=== PATIENT | male | born 1970 | race Caucasian/White ===

== ENCOUNTER → 2017-06-11 | Day surgery (SDC) | payer BC ==
[~2017-06-11] MED LIST: BELLADONNA/OPIUM 60 MG SUPP PR ONE; CEFTRIAXONE SOD 1 GM VIAL ONE; DEXAMETHASONE SOD PHOS INJ 4 MG/ML VIAL ONE; FENTANYL CITRATE/PF 100MCG/2 ML INJ ONE; FLOMAX0.4 MG PO; GENTAMICIN 80MG/NS 100 ML 200 ML IV PRN; GENTAMICIN SULFATE 160 MG in SODIUM CHLORIDE 0.9% 100 ML 100 ML IV PRN; IOPAMIDOL 610MG/1ML 300 MG/ML VIAL IV ONE; LIDOCAINE HCL 2% LOCAL INJ 5 ML SDV VIAL INJ ONE; MIDAZOLAM HCL 2 MG/2 ML VIAL ONE; ONDANSETRON HCL INJ 2 MG/ML VIAL ONE; PROPOFOL IV EMULSION 10 MG/ML 20 ML VIAL ONE; SEVOFLURANE INHAL SOLN 250 ML PEN BTL ONE
--- NOTE | 2017-07-19 04:34 | Operative Report ---
DATE OF PROCEDURE: June 11, 2017 PREOPERATIVE DIAGNOSES 1. Obstructive BPH. 2. Incomplete bladder emptying. POSTOPERATIVE DIAGNOSES 1. Obstructive BPH. 2. Incomplete bladder emptying. PROCEDURES PERFORMED 1. Cystourethroscopy with bilateral ureteral catheterization and retrograde ureteropyelography (separate procedure performed for the incomplete bladder emptying). 2. Interpretation of retrograde pyelography. 3. Supervision of fluoroscopy. No radiologist present. 4. Cystourethroscopy with implantation of 4 UroLift implants (separate procedure performed for the obstructive BPH). ANESTHESIA: General. COMPLICATIONS: None. CLINICAL SUMMARY: Momo Nowak is a 46-year-old man with obstructive BPH. He has failed Flomax. He is brought for the above procedures. The patient has a slow urinary force of stream with a maximum flow rate of less than 12 mL per second. He also has an AUA symptom score of greater than 12 on a 35. He is brought for the above procedures. He is aware of the risks of bleeding, infection, injury to adjacent structures, need for additional procedures, and elected to proceed. The patient previously had an elevated PSA to a value of 5.5. Followup examination revealed a PSA normalized at 3.71. OPERATIVE PROCEDURE IN DETAIL: Informed consent was verified. Momo Nowak was properly identified, taken to the operating room, and placed on the cystoscopy table in supine position. Anesthesia was uneventfully begun. The patient was then carefully and gently re-positioned in dorsal lithotomy position with all pressure points well padded. His genitalia were prepared and draped in usual sterile fashion. A 22.5-Kiswahili cystoscope sheath with a visual obturator in place was atraumatically inserted in patient's urethra. It was guided down the unremarkable urethra through the normal sphincteric region into the prostate bed which was significant for bilobar prostatic hypertrophy with visual obstruction and elevated median bar with visual obstruction of the bladder neck. Panendoscopy of the urinary bladder revealed grade 1 trabeculations, but no tumors, no stones, and no diverticula. Normally positioned and configured ureteral orifices were identified. An 8-Kiswahili catheter was used to cannulate each ureter and retrograde ureteropyelograms were performed. Interpretation of retrograde ureteropyelography: Contrast was instilled in retrograde fashion bilaterally. There were no tumors, no stones, and no diverticula. Unobstructed drainage was observed bilaterally fluoroscopically. UroLift implants were then placed. A total of 4 implants were placed. Two were placed 1.5 cm distal to the bladder neck anterolaterally on either side of the prostate. Two additional implants were then placed at the level of the verumontanum anterolaterally as well. This resulted in a continuous anterior channel that was open. The bladder was drained. The cystoscope was withdrawn while carefully examining the prostate bed. The belladonna and opium suppository was placed revealing a smooth prostate approximately 35 g in size, smooth, nonfluctuant without any nodules. The patient was uneventfully reversed from anesthesia and taken to recovery room in stable condition. There were no complications to the procedure. He tolerated the procedure well. Explicit postop instructions were given. Will follow the patient up in the office at which point in time we will perform uroflowmetry and bladder ultrasonography. Job#: [id number]
== END | disposition home or self-care (01) ==
LOC: OR 05:38
PROVIDERS: ATTEND Urology
DX: N40.1 Benign prostatic hyperplasia with lower urinary tract symptoms (principal); N13.8 Other obstructive and reflux uropathy; R39.14 Feeling of incomplete bladder emptying; N32.89 Other specified disorders of bladder; R35.1 Nocturia; N20.0 Calculus of kidney; E29.1 Testicular hypofunction; R01.1 Cardiac murmur, unspecified; Z68.31 Body mass index [BMI] 31.0-31.9, adult
CPT/HCPCS: 52005; C9740; 74420; 93005; J0696; J1100; J1580; J2001; J2250; J2405

== ENCOUNTER → 2018-05-30 | Outpatient (CLI) | payer BC ==
[~2018-05-30] MED LIST changes: +ANASTROZOLE1 MG INJ; +AXIRON30 MG/1.5 INJ; -BELLADONNA/OPIUM 60 MG SUPP PR ONE; -CEFTRIAXONE SOD 1 GM VIAL ONE; -DEXAMETHASONE SOD PHOS INJ 4 MG/ML VIAL ONE; -FENTANYL CITRATE/PF 100MCG/2 ML INJ ONE; -GENTAMICIN 80MG/NS 100 ML 200 ML IV PRN; -GENTAMICIN SULFATE 160 MG in SODIUM CHLORIDE 0.9% 100 ML 100 ML IV PRN; -IOPAMIDOL 610MG/1ML 300 MG/ML VIAL IV ONE; +LEVAQUIN500 MG PO; -LIDOCAINE HCL 2% LOCAL INJ 5 ML SDV VIAL INJ ONE; -MIDAZOLAM HCL 2 MG/2 ML VIAL ONE; -ONDANSETRON HCL INJ 2 MG/ML VIAL ONE; -PROPOFOL IV EMULSION 10 MG/ML 20 ML VIAL ONE; -SEVOFLURANE INHAL SOLN 250 ML PEN BTL ONE; +TYLENOL WITH C1 EACH PO; +VIT B12 INJ
--- NOTE | 2018-05-30 10:16 | Diagnostic Imaging Report ---
PROCEDURE:X-RAY ABDOMEN - KUB COMPARISON:None. INDICATIONS:URINARY CALCULI FINDINGS: Bowel gas partially obscures visualization of the kidneys. There are no calcifications projected over the renal shadows, expected course of the ureters or bladder. There is a non-obstructed bowel-gas pattern. There are no acute osseous abnormalities. Fiducial markers project over the pelvis. CONCLUSION: No radiographic evidence of urinary stone. Dictated by: DEBBIE GREEN M.D. on 05/30/2018 at 10:25 Electronically approved by: DEBBIE GREEN M.D. on 05/30/2018 at 10:25
== END ==
LOC: RAD 09:38
PROVIDERS: ATTEND Urology
DX: Z87.442 Personal history of urinary calculi (principal)
CPT/HCPCS: 74018

== ENCOUNTER 2018-06-28 08:28 | Inpatient (IN) | payer BC ==
[2018-06-26 12:26] LABS: BASOPHILS % 0.3 % (0.0-1.0); EOSINOPHILS # (AUTO) 0.2 (0.0-0.4); EOSINOPHILS % 2.6 % (0.0-6.0); HEMATOCRIT 49.8 % (38.2-49.6); HEMOGLOBIN 16.9 g/dL (14.0-18.0); LYMPHOCYTES # (AUTO) 1.5 (1.0-3.2); LYMPHOCYTES % 19.9 % (18.0-39.1); MEAN CORPUSCULAR HEMOGLOBIN 30.8 pg (28-32); MEAN CORPUSCULAR HGB CONC 33.9 g/dL (31-35); MEAN CORPUSCULAR VOLUME 90.7 fL (81-99); MONOCYTES # (AUTO) 0.7 (0.2-0.8); MONOCYTES % 9.1 % (4.4-11.3); NEUTROPHILS # (AUTO) 5.1 (2.1-6.9); NEUTROPHILS % 67.7 % (38.7-80.0); PLATELET COUNT 198 x10e3/uL (140-360); RED BLOOD COUNT 5.49 x10e6/uL (4.3-5.7); RED CELL DISTRIBUTION WIDTH 13.2 % (11.7-14.4)
[2018-06-26 12:48] LABS: ANION GAP 13.2 mmol/L (8-16); BLOOD UREA NITROGEN 18 mg/dL (7-26); BUN/CREATININE RATIO 14 (6-25); CALCIUM 9.1 mg/dL (8.4-10.2); CARBON DIOXIDE 27 mmol/L (22-29); CHLORIDE 101 mmol/L (98-107); CREATININE, SERUM 1.27 mg/dL (0.72-1.25); EST GLOMERULAR FILTRATION RATE > 60 ML/MIN (60-); GLUCOSE 95 mg/dL (74-118); POTASSIUM 4.2 mmol/L (3.5-5.1); SODIUM 137 mmol/L (136-145)
[~2018-06-28] VITALS: Ht 172.7 cm; Wt 99.3 kg
[~2018-06-28 08:28] MED LIST changes: -LEVAQUIN500 MG PO; -TYLENOL WITH C1 EACH PO
--- OUTSIDE RECORDS SUMMARY | 2018-06-28 08:30 | XMS REPORT ---
Author Author [facility] Address Unknown Phone Unavailable Care Team Providers Care Tool Liaison Name Role Phone SHERMAN MÉNDEZ Unavailable Unavailable Problems This patient has no known problems. Allergies, Adverse Reactions, Alerts This patient has no known allergies or adverse reactions. Medications This patient has no known medications. Results Test Description Test Time Test Comments Text Results Atomic Results Result Comments ABDOMEN-1VIEW (KUB) 2018-05-30 10:25:00 [place] [id number] Patient Name: ROOSEVELT ZHANG MR #: [id number] : 1970 Age/Sex: 47/M Req #: [id number] [facility] Physician: Ordered by: SHERMAN MÉNDEZ MD Report #: [id number] Location: [facility] Room/Bed: Procedure: [id number] DX/ABDOMEN-1VIEW (KUB) Exam Date: Exam Time: REPORT STATUS: Signed PROCEDURE: X-RAY ABDOMEN - KUB COMPARISON: None. INDICATIONS: URINARY CALCULI FINDINGS: Bowel gas partially obscures visualization of the kidneys. There are no calcifications projected over the renal shadows, expected course of the ureters or bladder. There is a non-obstructed bowel-gas pattern. There are no acute osseous abnormalities. Fiducial markers project over the pelvis. CONCLUSION: No radiographic evidence of urinary stone. Dictated by: DEBBIE GREEN M.D. on 05/30/2018 at 10:25 Electronically approved by: DEBBIE GREEN M.D. on 05/30/2018 at 10:25 Dictated By: DEBBIE GREEN MD [id number] Transcribed By: STARLA on 05/30/18 1025 COPY TO: SHERMAN MÉNDEZ MD
[2018-06-28] MEDS ORDERED: CEFTRIAXONE SOD 1 GM/NS 50 ML 50 ML IV ONE (08:40)
[2018-06-28] MEDS ORDERED: GENTAMICIN 80MG/NS 100 ML 200 ML IV ONE (08:40)
[2018-06-28] MEDS ORDERED: FLOMAX0.4 MG PO (08:54)
[2018-06-28] MEDS ORDERED: IOPAMIDOL 610MG/1ML 300 MG/ML VIAL IV ONE ×2 (10:07→10:48)
[2018-06-28] MEDS ORDERED: BELLADONNA/OPIUM 30 MG SUPP RC ONE ×2 (10:07→10:48)
[2018-06-28] MEDS ORDERED: MEPERIDINE HCL INJ 25 MG/ML VIAL ONE ×2 (12:25→12:58)
[2018-06-28] MEDS ORDERED: HYDROMORPHONE 2MG/ML 2 MG/ML ML ONE (12:40)
[2018-06-28] MEDS ORDERED: D5.45%NS/KCL 20MEQ 1,000 ML IV SCH (13:42)
[2018-06-28] MEDS ORDERED: BELLADONNA/OPIUM 60 MG SUPP PR PRN (13:45)
[2018-06-28] MEDS ORDERED: ACETAMINOPHEN/CODEINE 300MG - 30MG TAB PO PRN (13:45)
[2018-06-28] MEDS ORDERED: MORPHINE SULFATE INJ 4 MG/ML INJ ONE (14:44)
[2018-06-28] MEDS ORDERED: DEXAMETHASONE SOD PHOS INJ 4 MG/ML VIAL ONE (14:55)
[2018-06-28] MEDS ORDERED: SEVOFLURANE INHAL SOLN 250 ML PEN BTL ONE (14:55)
[2018-06-28] MEDS ORDERED: LIDOCAINE HCL 2% LOCAL INJ 5 ML SDV VIAL INJ ONE (14:55)
[2018-06-28] MEDS ORDERED: PROPOFOL IV EMULSION 10 MG/ML 20 ML VIAL ONE (14:55)
[2018-06-28] MEDS ORDERED: ONDANSETRON HCL INJ 2 MG/ML VIAL ONE (14:55)
--- NOTE | 2018-06-28 15:01 | NUR ---
Patient admitted to unit from PACU. Patient is post op TURP. Velez in place with continuous bladder irrigation. Urine noted to be pink tinged. Lung yanez clear to auscultation. Bowel sounds present but hypoactive. Patient c/o pain in lower abdomen/bladder area. PRN medication given. No edema noted. Left hand 20G IV in place. IV fluids infusing. Patient tolerated his diet. No s/s of distress noted
[2018-06-28 15:15] VITALS: BP 151/74
[2018-06-28] MEDS: BELLADONNA/OPIUM 30 MG SUPP RC PRN (15:47)
[2018-06-28] MEDS ORDERED: MIDAZOLAM HCL 2 MG/2 ML VIAL ONE (15:50)
[2018-06-28] MEDS ORDERED: FENTANYL CITRATE/PF 100MCG/2 ML INJ ONE (15:50)
[2018-06-28 15:59] VITALS: BP 151/74
[2018-06-28 16:01] VITALS: BP 151/74
[2018-06-28 16:57] VITALS: BP 151/74
[2018-06-28] MEDS: DOCUSATE SODIUM 100 MG CAP PO SCH (17:31)
[2018-06-28] MEDS: PHENAZOPYRIDINE HCL 100 MG TAB PO SCH (17:32)
[2018-06-28 20:13] VITALS: BP 148/63
[2018-06-28 21:51] VITALS: BP 148/63
[2018-06-29] VITALS (10 sets, daily range): BP systolic 110–166; BP diastolic 57–77
--- NOTE | 2018-06-29 00:30 | NUR ---
patient c/o urinary pain, alvarez cath to CBI, but not returning output at this time. simple flush performed, about 5 large clots and 5 small clots removed at this time. reconnected to CBI, draining.
[2018-06-29] MEDS: BELLADONNA/OPIUM 30 MG SUPP RC PRN (00:43)
[2018-06-29 04:41] LABS: BASOPHILS % 0.2 % (0.0-1.0); EOSINOPHILS # (AUTO) 0.1 (0.0-0.4); EOSINOPHILS % 0.4 % (0.0-6.0); HEMATOCRIT 46.9 % (38.2-49.6); HEMOGLOBIN 16.1 g/dL (14.0-18.0); LYMPHOCYTES # (AUTO) 1.4 (1.0-3.2); LYMPHOCYTES % 10.9 % (18.0-39.1); MEAN CORPUSCULAR HEMOGLOBIN 30.7 pg (28-32); MEAN CORPUSCULAR HGB CONC 34.3 g/dL (31-35); MEAN CORPUSCULAR VOLUME 89.3 fL (81-99); MONOCYTES # (AUTO) 1.1 (0.2-0.8); MONOCYTES % 8.6 % (4.4-11.3); NEUTROPHILS # (AUTO) 10.4 (2.1-6.9); NEUTROPHILS % 79.2 % (38.7-80.0); PLATELET COUNT 201 x10e3/uL (140-360); RED BLOOD COUNT 5.25 x10e6/uL (4.3-5.7); RED CELL DISTRIBUTION WIDTH 13.2 % (11.7-14.4)
[2018-06-29 04:57] LABS: BLOOD UREA NITROGEN 17 mg/dL (7-26); BUN/CREATININE RATIO 13 (6-25); CALCIUM 8.7 mg/dL (8.4-10.2); CARBON DIOXIDE 24 mmol/L (22-29); CHLORIDE 102 mmol/L (98-107); CREATININE, SERUM 1.26 mg/dL (0.72-1.25); EST GLOMERULAR FILTRATION RATE > 60 ML/MIN (60-); GLUCOSE 114 mg/dL (74-118); SODIUM 137 mmol/L (136-145)
--- NOTE | 2018-06-29 07:37 | NUR ---
Rcvd patient in report this am. Patient is asleep in bed at this time. CBI continues at this time. Urine clear and yellow
[2018-06-29] MEDS ORDERED: MAGNESIUM/ALUMINUM/SIMETHICONE 30 ML UDC PO PRN (09:00)
[2018-06-29] MEDS: SODIUM CHLORIDE 0.9% 1000ML 1,000 ML IV SCH ×2 (09:00→14:02)
[2018-06-29] MEDS ORDERED: CEFAZOLIN SOD 1 GM VIAL IV SCH (09:00)
[2018-06-29] MEDS: DOCUSATE SODIUM 100 MG CAP PO SCH ×2 (09:04→17:00)
[2018-06-29] MEDS: PHENAZOPYRIDINE HCL 100 MG TAB PO SCH ×3 (09:04→17:18)
[2018-06-29] MEDS: FAMOTIDINE 20 MG TAB PO SCH ×3 (09:15→16:30)
--- NOTE | 2018-06-29 09:30 | NUR ---
Patient is AAOx3. Patient lung yanez clear to auscultation. Bowel sounds present x4. Patient passing gas. Velez catheter remains in place with continuous bladder irrigation. No c/o pain. Urine noted to be clear orange. Patient ambulated to the bathroom on his own.
[2018-06-29] MEDS: CEFAZOLIN SOD 1 GM/D5W 50ML 50 ML IV SCH ×3 (09:51→22:18)
[2018-06-29] MEDS ORDERED: CEFTRIAXONE SOD 500 MG VIAL IM SCH (10:00)
--- NOTE | 2018-06-29 11:54 | NUR ---
Manual irrigation performed at this time. Small clots removed. Clear urine noted otherwise. No c/o pain
--- NOTE | 2018-06-29 12:47 | NUR ---
Nutrition Screen Note RD Recommendation for Physician: Continue diet as ordered Plan of Care: RD following, monitoring for adequacy and tolerance Nutrition reason for involvement: Nutrition Risk Trigger - MST Primary Diagnose(s): prostatism Ht: 68in Wt:219lbs BMI:33.3 kg/m2 IBW:154lbs RD Assessment:(06/29/2018) Initial encounter with Pt. Pt denies any nausea, vomiting or diarrhea nor has any difficulty chewing or swallowing. Pt is eating well Current Diet: Regular diet Malnutrition Evaluation (06/29/2018) The patient does not meet criteria for a specified degree of malnutrition at this time. Will re-evaluate at follow-up as appropriate. Diet Education Needs Assessment: Diet education not indicated. Diet Adequacy: Meeting calorie needs, Meeting protein needs, Meeting fluid needs Tolerance: Tolerating PO Nutrition Care Level: Quan Coughlin RD, LD, CNSC
[2018-06-29] MEDS: HYDROCODONE/APAP 10MG-325MG TAB PO PRN ×2 (14:20→19:30)
--- NOTE | 2018-06-29 19:04 | NUR ---
received patient aaox4, at side. no needs at this time. alvarez cath to CBI, output yellow/orange no blood or clots noted at this time. will continue to monitor the patient. bed locked and in lowest position, call light within easy reach. encouraged to call for assistance, patient verbalized understanding.
--- NOTE | 2018-06-29 19:35 | NUR ---
patient ambulated hallway with , tolerated well.
[2018-06-30] VITALS: BP 116/57
[2018-06-30] MEDS: HYDROCODONE/APAP 10MG-325MG TAB PO PRN ×3 (02:40→16:13)
[2018-06-30 04:12] VITALS: BP 118/61
[2018-06-30] MEDS: SODIUM CHLORIDE 0.9% 1000ML 1,000 ML IV SCH ×2 (05:00→15:00)
[2018-06-30] MEDS: CEFAZOLIN SOD 1 GM/D5W 50ML 50 ML IV SCH ×2 (05:48→13:39)
[2018-06-30 06:15] LABS: BASOPHILS % 0.5 % (0.0-1.0); EOSINOPHILS # (AUTO) 0.2 (0.0-0.4); EOSINOPHILS % 2.5 % (0.0-6.0); HEMATOCRIT 49.1 % (38.2-49.6); HEMOGLOBIN 16.3 g/dL (14.0-18.0); LYMPHOCYTES % 25.2 % (18.0-39.1); MEAN CORPUSCULAR HEMOGLOBIN 30.5 pg (28-32); MEAN CORPUSCULAR HGB CONC 33.2 g/dL (31-35); MEAN CORPUSCULAR VOLUME 91.9 fL (81-99); MONOCYTES # (AUTO) 0.9 (0.2-0.8); MONOCYTES % 11.1 % (4.4-11.3); NEUTROPHILS # (AUTO) 4.9 (2.1-6.9); NEUTROPHILS % 60.3 % (38.7-80.0); PLATELET COUNT 180 x10e3/uL (140-360); RED BLOOD COUNT 5.34 x10e6/uL (4.3-5.7); RED CELL DISTRIBUTION WIDTH 13.4 % (11.7-14.4)
[2018-06-30 06:38] LABS: BLOOD UREA NITROGEN 17 mg/dL (7-26); BUN/CREATININE RATIO 14 (6-25); CALCIUM 8.8 mg/dL (8.4-10.2); CARBON DIOXIDE 27 mmol/L (22-29); CHLORIDE 103 mmol/L (98-107); CREATININE, SERUM 1.22 mg/dL (0.72-1.25); EST GLOMERULAR FILTRATION RATE > 60 ML/MIN (60-); GLUCOSE 83 mg/dL (74-118); SODIUM 136 mmol/L (136-145)
[2018-06-30] MEDS: FAMOTIDINE 20 MG TAB PO SCH ×2 (07:30→16:30)
--- NOTE | 2018-06-30 07:30 | NUR ---
Rcvd patient in report this am. Patient is awake ambulating at this time. No s/s of distress noted
[2018-06-30 08:24] VITALS: BP 126/65
[2018-06-30] MEDS: PHENAZOPYRIDINE HCL 100 MG TAB PO SCH ×3 (08:24→17:44)
[2018-06-30] MEDS: DOCUSATE SODIUM 100 MG CAP PO SCH ×2 (08:24→17:44)
[2018-06-30 10:54] VITALS: BP 126/65
[2018-06-30 12:14] VITALS: BP 141/80
[2018-06-30] MEDS ORDERED: MAGNESIUM HYDROXIDE 30 ML UDC PO PRN (12:45)
--- NOTE | 2018-06-30 15:07 | NUR ---
Call placed to Dr. Rene to inquire on removal of the alvarez catheter. Urine clear. Bladder irrigation running at a slow rate. Patient requesting for catheter to be removed
--- NOTE | 2018-06-30 16:14 | NUR ---
Removed alvarez at this time. Patient tolerated well. 50ml of water removed from bulb. Tip intact. Patient tolerated well. Due to void and serial urines started
[2018-06-30 16:16] VITALS: BP 121/56
[2018-06-30] MEDS ORDERED: SENNOSIDES 8.6 MG TAB PO SCH (17:00)
--- NOTE | 2018-06-30 17:45 | NUR ---
Patient has voided two times. NOted to be orange in color. 300ml total so far
[2018-06-30] MEDS ORDERED: TYLENOL WITH C1 EACH PO (18:57)
[2018-06-30] MEDS ORDERED: LEVAQUIN500 MG PO (18:57)
--- NOTE | 2018-06-30 19:08 | NUR ---
Removed IV from left hand. Pressure dressing applied.
--- NOTE | 2018-07-09 01:27 | Operative Report ---
DATE OF PROCEDURE: June 28, 2018 PREOPERATIVE DIAGNOSES 1. Obstructing BPH, failed UroLift implants. 2. History of urolithiasis. POSTOPERATIVE DIAGNOSES 1. Obstructing BPH, failed UroLift implants. 2. History of urolithiasis. 3. Urethral stricture disease of the fossa navicularis. OPERATIONS PERFORMED 1. Cystourethroscopy with calibration and dilation of urethral stricture (separate procedure performed for diagnosis of stricture). 2. Cystourethroscopy with bilateral ureteral catheterization and retrograde ureteropyelography (separate procedure performed for the history of urolithiasis). 3. Interpretation of retrograde ureteropyelography. 4. Supervision of fluoroscopy. No radiologist present. 5. Cystourethroscopy with transurethral resection of the prostate utilizing the plasma button electrode. ANESTHESIA: General. COMPLICATIONS: None. CLINICAL SUMMARY: Momo Nowak is a 48-year-old man with significant obstructive BPH symptomatology. The patient underwent UroLift implantation with improvement of his symptomatology, but he still has been unable to wean himself off of the Flomax. He is still medication dependent and his urinary force of stream is not ideal and he desired definitive therapy. He is aware of the risks of bleeding, infection, injury to adjacent structures, need for additional procedures and elected to proceed. He understands also the risks of incontinence, impotence, and the almost definitive result of retrograde ejaculation. He understood all these risks and elected to proceed. OPERATIVE PROCEDURE IN DETAIL: Informed consent was verified. Momo Nowak was properly identified, taken to the operating room, placed on the cystoscopy table in supine position. Anesthesia was uneventfully begun. The patient was then uneventfully re-positioned in the dorsal lithotomy position with all pressure points well padded. His genitalia were prepared and draped in usual sterile fashion. The 22.5-Ukrainian cystoscope sheath with the visual obturator in place was atraumatically inserted in the patient's urethra, but we could not advance past the fossa navicularis where there was a stricture. We calibrated the stricture at 18-Ukrainian and dilated to 30-Ukrainian with sounds. We then proceeded down the otherwise unremarkable urethra to the normal sphincteric region through the prostate bed which was significant for a median lobe that was not intravesical but was intraprostatic and a very elevated median bar and visual obstruction of the prostate bed despite a small continuous channel present anteriorly as a result of his prior UroLift implant. We entered the patient's bladder where panendoscopy revealed no suspicious mucosal lesions. No tumors and no stones. Glomerulations were noted throughout the bladder with some minimal distention. No suspicious mucosal lesions were identified. Ureteral catheter was used to cannulate each ureter and retrograde ureteropyelograms were performed. Interpretation of retrograde ureteropyelography: Contrast was instilled in retrograde fashion bilaterally. There were no tumors, no stones, and no diverticula. Unobstructed drainage was observed bilaterally fluoroscopically. The resectoscope was then atraumatically placed and we proceeded with performing a transurethral resection of the prostate utilizing the plasma button electrode. Vaporization was carried out from the bladder neck to but never past the verumontanum. We first eliminated the median lobe down to its base and then throughout that part of procedure we were careful not to injure the ureteral orifices. We then worked on both lateral lobes from the bladder neck to but never past the verumontanum and down the surgical capsule circumferentially. The patient's prostate exhibited multiple prostatic stones that we released as signs of chronic prostatitis. The patient's prostatic parenchyma was also very fibrous which would explain why the patient was failing medications and why he failed to obtain an ideal UroLift response. This further reaffirms the patient's decision to proceed with a transurethral resection of the prostate. Pinpoint electrocautery was utilized to achieve hemostasis. The resectoscope was withdrawn. A continuous irrigation Velez catheter was placed, was irrigated to and fro to ensure it worked properly. He was then placed on continuous bladder irrigation with barely pink efflux emerging. A belladonna and opium suppository was placed, revealing a 40-g prostate that was smooth, nonfluctuant, without any nodules. The patient was then uneventfully reversed from anesthesia and taken to the recovery room in stable condition. There were no complications to the procedure. Patient tolerated the procedure well. Estimated blood loss was minimal. Plans will be to admit the patient to the hospital on an inpatient basis for continuous bladder irrigation as well as analgesia. The patient has now definite signs of having had chronic prostatitis. The patient's glomerulations exhibited that he may have as suspected in the background a diagnosis of interstitial cystitis or as is more contemporarily named chronic pelvic pain syndrome. He therefore will need admission for postoperative care including pain control with medications that we cannot provide as an outpatient such as a belladonna and opium suppository which he will require for management of his bladder spasms and the pelvic pain which we expect him to experience with the Velez catheter in situ. The patient has had previous pain control issues with urological procedures in the past. Hopefully, we will be able to wean the patient off the continuous irrigation and proceed with a voiding trial within the next 2 to 3 days. Job#: [id number] CF
== END 2018-06-30 19:15 | disposition home or self-care (01) | DRG 713 ==
LOC: OR 08:28 → PACU V 14:02 → MED/SURG 15:00
PROVIDERS: ADMIT Urology; ATTEND Urology
PROC: BT141ZZ Fluoroscopy of Kidneys, Ureters and Bladder using Low Osmolar Contrast (ICD-10-PCS; 2018-06-28)
PROC: 0V508ZZ Destruction of Prostate, Via Natural or Artificial Opening Endoscopic (ICD-10-PCS; principal; 2018-06-28 11:00)
PROC: 0T7D8ZZ Dilation of Urethra, Via Natural or Artificial Opening Endoscopic (ICD-10-PCS; 2018-06-28 11:00)
DX: N40.1 Benign prostatic hyperplasia with lower urinary tract symptoms (principal); N17.9 Acute kidney failure, unspecified; R39.14 Feeling of incomplete bladder emptying; R35.1 Nocturia; R33.9 Retention of urine, unspecified; R31.9 Hematuria, unspecified; G47.33 Obstructive sleep apnea (adult) (pediatric); N18.9 Chronic kidney disease, unspecified; N35.919 Unspecified urethral stricture, male, unspecified site; D72.829 Elevated white blood cell count, unspecified; N32.89 Other specified disorders of bladder
CPT/HCPCS: 36415; 74420; 80048; 82948; 84550; 85025; 93005; J0690; J0696; J1100; J1580; J2001; J2175; J2250; J2270; J2405; J7030

== ENCOUNTER 2019-10-23 12:18 | Inpatient (IN) | payer BC ==
[~2019-10-23] VITALS: Ht 172.7 cm; Wt 96.6 kg
[~2019-10-23 12:18] MED LIST changes: +LEVAQUIN500 MG PO; +TYLENOL WITH C1 EACH PO
[2019-10-23 14:13] LABS: BASOPHILS % 0.2 % (0.0-1.0); EOSINOPHILS # (AUTO) 0.1 (0.0-0.4); EOSINOPHILS % 1.1 % (0.0-6.0); HEMATOCRIT 48.8 % (38.2-49.6); HEMOGLOBIN 16.3 g/dL (14.0-18.0); LYMPHOCYTES # (AUTO) 1.2 (1.0-3.2); LYMPHOCYTES % 14.3 % (18.0-39.1); MEAN CORPUSCULAR HEMOGLOBIN 28.8 pg (28-32); MEAN CORPUSCULAR HGB CONC 33.4 g/dL (31-35); MEAN CORPUSCULAR VOLUME 86.2 fL (81-99); MONOCYTES # (AUTO) 0.6 (0.2-0.8); MONOCYTES % 7.1 % (4.4-11.3); NEUTROPHILS # (AUTO) 6.3 (2.1-6.9); NEUTROPHILS % 77.1 % (38.7-80.0); PLATELET COUNT 232 x10e3/uL (140-360); RED BLOOD COUNT 5.66 x10e6/uL (4.3-5.7)
--- NOTE | 2019-10-23 14:18 | Diagnostic Imaging Report ---
EXAMINATION: CHEST SINGLE (PORTABLE) INDICATION: Pre-operative COMPARISON: None FINDINGS: LINES/TUBES:None LUNGS:The lungs are well-inflated. No focal consolidation or pulmonary edema. PLEURA:No pleural effusion or pneumothorax. MEDIASTINUM:The cardiomediastinal silhouette appears normal in size and shape. BONES/SOFT TISSUES:No acute osseous injury. ABDOMEN:No free air under the diaphragm. IMPRESSION: No focal pneumonia or pulmonary edema. Signed by: Freddie Gant MD on 10/23/2019 2:14 PM
[2019-10-23 14:28] LABS: BLOOD UREA NITROGEN 20 mg/dL (7-26); BUN/CREATININE RATIO 18 (6-25); CALCIUM 9.1 mg/dL (8.4-10.2); CARBON DIOXIDE 26 mmol/L (22-29); CHLORIDE 104 mmol/L (98-107); CREATININE, SERUM 1.13 mg/dL (0.72-1.25); EST GLOMERULAR FILTRATION RATE > 60 ML/MIN (60-); GLUCOSE 87 mg/dL (74-118); SODIUM 137 mmol/L (136-145)
[2019-10-23] MEDS: CEFAZOLIN SOD 1 GM/NS 50ML 50 ML IV SCH ×2 (14:57→23:26)
[2019-10-23 15:03] LABS: INR 0.93
[2019-10-23 15:04] LABS: PARTIAL THROMBOPLASTIN TIME 27.1 seconds (23.8-35.5)
[2019-10-23] MEDS: D5.45%NS/KCL 20MEQ 1,000 ML IV SCH ×2 (15:33→23:26)
[2019-10-23] MEDS ORDERED: FENTANYL CITRATE/PF 100MCG/2 ML INJ ONE (15:44)
[2019-10-23] MEDS ORDERED: MIDAZOLAM HCL 2 MG/2 ML VIAL ONE (15:44)
[2019-10-23 16:13] VITALS: BP 121/76
[2019-10-23 16:13] LABS: COLOR,URINE YELLOW (YELLOW)
--- NOTE | 2019-10-23 16:13 | NUR ---
RECEIVED PATIENT FROM ER. PATIENT A/O X3, EVEN RESPIRATIONS ON RA. LUNG SOUNDS CLEAR. TELEMETRY #5 SR. PATIENT AMBULATES INDEPENDENTLY. NPO FOR PROCEDURE THIS AFTERNOON. LEFT AC 20 GAUGE IV WITH IVF @ 125 CC/HR. NO PAIN AT THIS TIME. PENILE PAIN WHEN MOVING. ORIENTED PATIENT TO ROOM AND CALL LIGHT. CALL LIGHT IN REACH WILL CONTINUE TO MONITOR PATIENT.
[2019-10-23 16:14] LABS: BILIRUBIN,URINE NEGATIVE (NEGATIVE); KETONES,URINE 1+ (NEGATIVE); LEUKOCYTE ESTERASE ,URINE NEGATIVE (NEGATIVE); NITRITE,URINE NEGATIVE (NEGATIVE); PROTEIN,URINE DIPSTICK NEGATIVE (NEGATIVE); URINE UROBILINOGEN 0.2 mg/dL (0.2 - 1)
[2019-10-23 16:15] LABS: CLARITY,URINE CLEAR (CLEAR)
[2019-10-23 16:19] LABS: EPITHELIAL CELLS,URINE RARE /LPF
--- NOTE | 2019-10-23 17:35 | NUR ---
PATIENT LEFT TO OR IN STABLE CONDITION.
[2019-10-23 17:38] VITALS: BP 121/76
[2019-10-23] MEDS ORDERED: BUPIVACAINE HCL 0.5% INJ 30 ML VIAL INJ ONE (17:53)
[2019-10-23] MEDS ORDERED: BACITRACIN ZINC 15 GM OINT ONE (17:53)
[2019-10-23] MEDS ORDERED: BACITRACIN 50,000 UNIT VIAL ONE (17:54)
[2019-10-23 18:02] VITALS: BP 121/76
[2019-10-23] MEDS ORDERED: ONDANSETRON HCL INJ 2MG/ML 2ML 2 MG/ML VIAL ONE (19:44)
[2019-10-23] MEDS ORDERED: LIDOCAINE HCL 2% LOCAL INJ 5 ML SDV VIAL INJ ONE (19:44)
[2019-10-23] MEDS ORDERED: SEVOFLURANE INHAL SOLN 250 ML PEN BTL ONE (19:44)
[2019-10-23] MEDS ORDERED: ACETAMINOPHEN 1000 MG/100 ML IV ONE (19:44)
[2019-10-23] MEDS ORDERED: PROPOFOL IV EMULSION 10 MG/ML 20 ML VIAL ONE (19:44)
[2019-10-23] MEDS ORDERED: DEXAMETHASONE SOD PHOS INJ 4 MG/ML VIAL ONE (19:44)
[2019-10-23] MEDS ORDERED: MEPERIDINE HCL INJ 25 MG/ML VIAL ONE (20:04)
[2019-10-23 20:30] VITALS: BP 137/81
[2019-10-23 20:52] VITALS: BP 137/81
[2019-10-23 21:08] VITALS: BP 137/81
[2019-10-23] MEDS: MORPHINE SULFATE 2 MG/ML SYR 1ML IV PRN (22:45)
[2019-10-24] VITALS (9 sets, daily range): BP systolic 113–136; BP diastolic 64–93
--- NOTE | 2019-10-24 03:06 | Operative Report ---
DATE OF PROCEDURE: 10/23/2019 SURGEON: Chung Rene MD PREOPERATIVE DIAGNOSIS: Acute penile fracture. POSTOPERATIVE DIAGNOSES: 1. Acute penile fracture. 2. Benign prostatic hypertrophy. 3. Urethral stricture disease. OPERATIONS PERFORMED: 1. Cystourethroscopy (separate procedure performed to evaluate for urethral injury and also to evaluate the patient given this history of urethral stricture disease and benign prostatic hypertrophy). 2. Penile exploration with repair of left corpora cavernosa tunica albuginea tear. 3. Regional nerve block (separate procedure performed for postoperative pain control and not required for the actual performance of surgery which is done under anesthesia). ANESTHESIA: General. COMPLICATIONS: None. CLINICAL SUMMARY: Momo Nowak is a 49-year-old man with severe Peyronie's disease. The patient has an extremely large plaque extending to both sides of the dorsal midshaft of the penis. The patient's plaque protrudes lateral from the corpora cavernosa on each side. The patient has been undergoing therapy with Xiaflex. He underwent Xiaflex injection through 4 courses. The patient has received both verbal as well as written instructions about penile rehabilitation and therapy about bending of his penis and very specifically about not engaging in sexual intercourse for 4 weeks following each injection. The patient earlier today was working on penile rehabilitation and had an erection. He denies having intercourse specifically, but reports abutting his penis against his and that is when he developed a pop. He had immediately tumescence and immediate swelling and ecchymosis of his genitalia. He then walked into the office for evaluation. Upon evaluation, I referred the patient to the emergency room for admission and preparation for urgent surgery. The patient denies hematuria or voiding complaints. The patient's Peyronie's disease has been very severe. The patient reports that he has had impotence and decreased erectile rigidity distal to his severe plaque, so that he is able to get penile rigidity with erection proximal to the plaque, but beyond the plaque, the patient is not able to get a rigid erection. The patient understands the risks of bleeding, infection, injury to adjacent structures, injury to dorsal nerves, and some numbness into the penis. He understands this may actually cause worsening of his Peyronie's disease. The patient also understands that we will not be excising his Peyronie's plaque at this procedure. The patient has been told repeatedly that his plaque is so severe and now that he has distal erectile dysfunction that penile prosthesis where there is plaque excision may be his only hope of achieving proper erectile function. The patient understands the risks, the benefits, and the lack of alternative to his acute injury and elected to proceed with surgery as recommended. This procedure is an obvious emergency and must be performed despite the COVID emergency situation. OPERATIVE PROCEDURE IN DETAIL: Informed consent was verified. Momo Nowak was properly identified, taken to the operating room, and placed on the operating table in supine position. Anesthesia was uneventfully began. The patient's genitalia were shaved, prepared, and draped in usual sterile fashion. A flexible cystoscope was inserted into the patient's urethra, was guided down the unremarkable distal urethra, where there was no significant stricture at the fossa navicularis at this time. We proceeded down the otherwise unremarkable urethra through the normal sphincteric region through the prostate bed, which was significant for being wide open status post prior transurethral resection of the prostate. We went into the patient's bladder, where panendoscopy revealed grade 1 trabeculations, but no tumors, no stones, no diverticula, and no suspicious lesions. The cystoscope was withdrawn and the Velez catheter was placed. A circumferential incision was made approximately 5 mm proximal to the goldberg of the glans penis. We attempted to follow the patient's circumcision incision. We then proceeded with degloving the penis and dissecting the full-thickness skin off the patient's penile shaft. This revealed a significant amount of hematoma that was evacuated. The Peyronie's plaque was assessed very well. This is extremely severe plaque protruding laterally on both sides of the dorsum of the corpora cavernosa. Just proximal to the plaque in the left corpora and just to the right of the dorsal venous complex, there was an angulated tear of the tunica albuginea. There was bleeding from this tear. We could see exposed corpora cavernosal tissue through this tear. 2-0 Vicryl suture was then utilized to approximate this tear. Copious irrigation was performed, 2 separate quarter-inch Sharon drains were then placed through a separate stab incision in mons pubis and secured the skin with a chromic suture. The drains were directed on either side of the penis. We copiously irrigated. Then, Marcaine without epinephrine was utilized to infiltrate the region of both dorsal penile nerves. This was done for postoperative pain control and not required for the actual performance of surgery, which was done under general anesthesia. Copious irrigation was again performed. The circumcising incision was then approximated with 3-0 and 4-0 chromic sutures in interrupted fashion. Sterile dressings were applied of bacitracin ointment, Xeroform gauze, loose-fitting Nilson, and a 4 x 4 was placed over the Bolton drains. The patient was then uneventfully reversed from anesthesia and taken to recovery room in stable condition. There were no complications to the procedure. The patient tolerated the procedure well. Sponge, needle, and instrument counts were correct x2 at the end of the case. Estimated blood loss 50 mL. Blood loss does not include actual hematoma that was evacuated. We will monitor the patient postoperatively and of course on the manager long term care basis. MD HALI Merlos/MIGUEL ANGEL /[id number] KELLI
[2019-10-24] MEDS: MORPHINE SULFATE 2 MG/ML SYR 1ML IV PRN (03:30)
[2019-10-24] MEDS: CEFAZOLIN SOD 1 GM/NS 50ML 50 ML IV SCH ×3 (05:32→21:50)
[2019-10-24] MEDS: D5.45%NS/KCL 20MEQ 1,000 ML IV SCH ×3 (05:32→21:50)
[2019-10-24] MEDS: ACETAMINOPHEN/CODEINE 300MG - 30MG TAB PO PRN ×2 (05:32→11:43)
[2019-10-24 05:58] LABS: BASOPHILS % 0.1 % (0.0-1.0); EOSINOPHILS % 0.1 % (0.0-6.0); HEMATOCRIT 45.2 % (38.2-49.6); LYMPHOCYTES # (AUTO) 0.8 (1.0-3.2); LYMPHOCYTES % 7.8 % (18.0-39.1); MEAN CORPUSCULAR HEMOGLOBIN 29.1 pg (28-32); MEAN CORPUSCULAR HGB CONC 33.2 g/dL (31-35); MEAN CORPUSCULAR VOLUME 87.8 fL (81-99); MONOCYTES # (AUTO) 0.8 (0.2-0.8); MONOCYTES % 7.3 % (4.4-11.3); NEUTROPHILS # (AUTO) 8.6 (2.1-6.9); NEUTROPHILS % 84.3 % (38.7-80.0); PLATELET COUNT 223 x10e3/uL (140-360); RED BLOOD COUNT 5.15 x10e6/uL (4.3-5.7); RED CELL DISTRIBUTION WIDTH 12.9 % (11.7-14.4)
[2019-10-24 06:11] LABS: ANION GAP 9.5 mmol/L (8-16); CALCIUM 8.7 mg/dL (8.4-10.2); CREATININE, SERUM 1.37 mg/dL (0.72-1.25); POTASSIUM 4.5 mmol/L (3.5-5.1)
[2019-10-24] MEDS ORDERED: ACETAMINOPHEN/CODEINE 300MG - 30MG TAB PO PRN (14:00)
[2019-10-24] MEDS ORDERED: LACTULOSE SYRUP 20 GM/30 ML UDC PO PRN (14:15)
[2019-10-24] MEDS ORDERED: HYDROCODONE/APAP 5MG-325MG TAB PO PRN (14:15)
[2019-10-24] MEDS: HYDROCODONE/APAP 5MG-325MG TAB PO PRN ×2 (17:28→21:51)
[2019-10-24] MEDS: DOCUSATE SODIUM 100 MG CAP PO SCH (17:28)
--- NOTE | 2019-10-24 20:39 | History and Physical ---
HISTORY OF PRESENT ILLNESS: The patient is a 49-year-old male with past medical history is positive for hypertension, benign prostatic hypertrophy, status post TURP. Apparently, the patient had a fracture in his penis according to his description. He was admitted to the hospital by Dr. Rene, who did cystoscopy and repair of fracture. REVIEW OF SYSTEMS: CARDIOVASCULAR: No chest pain or palpitation. RESPIRATORY: No shortness of breath. No cough. GASTROINTESTINAL: No nausea or vomiting. No diarrhea. GENITOURINARY: Penile pain, but no dysuria, no blood in the urine. ALLERGIES: NOT ALLERGIC TO ANYTHING. SOCIAL HISTORY: He does not smoke. He drinks twice a year. PAST MEDICAL HISTORY: 1. Benign prostatic hypertrophy, status post TURP. 2. Hypertension. PHYSICAL EXAMINATION: HEART: Showed regular rhythm. Normal S1 and S2 sound. LUNGS: Clear bilaterally. ABDOMEN: Soft. EXTREMITIES: Show no evidence of cyanosis or edema. VITAL SIGNS: Blood pressure 136/93, temperature 97 degrees, heart rate 65 per minute, respiratory rate 19 per minute, and oxygen saturation 98%. LABORATORY DATA: On the BMP; sodium 138, potassium 4.5, chloride 103, CO2 of 30, anion gap 9.5, BUN 18, creatinine 1.37, GFR of 55, glucose 121, calcium 8.7. Urinalysis showed 1+ ketones. Chest x-ray was done also, which showed no focal pneumonia or pulmonary edema. FINAL IMPRESSION: 1. Penile fracture. 2. History of benign prostatic hypertrophy. 3. Acute renal failure. 4. Constipation. PLAN OF TREATMENT: As I said, the patient already underwent surgery by Dr. Rene. He underwent cystoscopy and repair of the fracture. So, the rest of the medication will be cefazolin 1 g IV q.8 hours. He is on D5 half-normal saline at 135 mL an hour, Tylenol with codeine 1 tablet every 6 hours as needed, Colace 100 mg twice a day, [place] 5/325 q.4 hours as needed for severe pain, lactulose 20 g twice a day as needed for constipation, morphine 2 mg IV q.3 hours as needed for severe pain, Flomax 0.4 mg daily. Case was discussed with the nurse and with the patient at the bedside. Time spent was 35 to 40 minutes. MD ALEXANDRE Torres/MIGUEL ANGEL /[id number]
[2019-10-25] VITALS (7 sets, daily range): BP systolic 115–136; BP diastolic 73–88
[2019-10-25 06:04] LABS: ANION GAP 9.2 mmol/L (8-16); BLOOD UREA NITROGEN 12 mg/dL (7-26); BUN/CREATININE RATIO 10 (6-25); CALCIUM 8.4 mg/dL (8.4-10.2); CARBON DIOXIDE 27 mmol/L (22-29); CHLORIDE 105 mmol/L (98-107); CREATININE, SERUM 1.17 mg/dL (0.72-1.25); EST GLOMERULAR FILTRATION RATE > 60 ML/MIN (60-); GLUCOSE 100 mg/dL (74-118); POTASSIUM 4.2 mmol/L (3.5-5.1); SODIUM 137 mmol/L (136-145)
[2019-10-25] MEDS: CEFAZOLIN SOD 1 GM/NS 50ML 50 ML IV SCH ×3 (06:15→23:02)
[2019-10-25] MEDS: HYDROCODONE/APAP 5MG-325MG TAB PO PRN ×3 (06:15→20:29)
[2019-10-25] MEDS: D5.45%NS/KCL 20MEQ 1,000 ML IV SCH ×3 (06:15→20:29)
[2019-10-25] MEDS: TAMSULOSIN HCL 0.4 MG CAP PO SCH (09:00)
[2019-10-25] MEDS: DOCUSATE SODIUM 100 MG CAP PO SCH ×2 (09:00→16:36)
--- NOTE | 2019-10-25 10:04 | NUR ---
per Dr. Rene's progress note written on 10/24/2019 at 0726; "YOANA alvarez in AM"
--- NOTE | 2019-10-25 11:41 | Progress Note ---
DATE: Internal Medicine Progress Note SUBJECTIVE: The patient has no significant complaint today. PHYSICAL EXAMINATION: VITAL SIGNS: Blood pressure 125/73, temperature is 96.7, heart rate 63 per minute, respiratory rate 17 per minute, oxygen saturation 93%. ABDOMEN: Soft. EXTREMITIES: Show no edema. GENITOURINARY: He has a Velez catheter in place. LABORATORY DATA: We have blood work, which include a CBC; white count normal at 10.23, hemoglobin 15.0, hematocrit 25.2, and platelet count 223,000. On the BMP; sodium 137, potassium 4.2, chloride 105, CO2 27, BUN 12, creatinine 1.17, glucose 100, calcium 8.4. The urine came back essentially clear except for ketones. PT 13.0, INR 0.93, PTT 27.1. Had a chest x-ray done which show no significant abnormalities. No pneumonia or edema. FINAL IMPRESSION: 1. Penile fracture. 2. Benign prostatic hypertrophy. 3. Acute renal failure. 4. Constipation. PLAN OF TREATMENT: Continue cefazolin 1 g IV q.8 hours, continue D5 half-normal saline at 125 mL an hour, continue Colace 100 mg twice a day, [place] 5/325 q.4 hours as needed for [id number] pain, lactulose 20 g twice a day as needed for constipation, morphine 2 mg IV q.3 hours as needed for severe pain, and Flomax 0.[address] Rene, Urology is going to keep him under observation over the weekend and then hopefully discharge tomorrow. MD ALEXANDRE Torres/MIGUEL ANGEL /[id number]
[2019-10-26 00:04] VITALS: BP 135/77
[2019-10-26] MEDS: HYDROCODONE/APAP 5MG-325MG TAB PO PRN ×4 (03:35→22:00)
[2019-10-26 04:05] VITALS: BP 134/82
[2019-10-26] MEDS: D5.45%NS/KCL 20MEQ 1,000 ML IV SCH (05:16)
[2019-10-26] MEDS: CEFAZOLIN SOD 1 GM/NS 50ML 50 ML IV SCH ×3 (06:03→22:00)
--- NOTE | 2019-10-26 07:00 | NUR ---
received bedside report. pt is alert resting in bed, no s/s of distress. call light within reach and instructed to call RN for help.
[2019-10-26] MEDS: TAMSULOSIN HCL 0.4 MG CAP PO SCH (08:27)
[2019-10-26] MEDS: DOCUSATE SODIUM 100 MG CAP PO SCH ×2 (08:27→17:23)
[2019-10-26 08:32] VITALS: BP 128/78
[2019-10-26 08:36] VITALS: BP 128/78
[2019-10-26 13:40] VITALS: BP 129/81
--- NOTE | 2019-10-26 14:39 | Progress Note ---
DATE: Internal Medicine Progress Note SUBJECTIVE: The patient is doing well. No significant complaint. PHYSICAL EXAMINATION: HEART: Showed regular rhythm. Normal S1 and S2 sound. LUNGS: Clear bilaterally. ABDOMEN: Soft. VITAL SIGNS: Blood pressure is 128/78, temperature 96.9, heart rate 63 per minute, respiratory rate 18 per minute, and O2 saturation 96%. LABORATORY STUDIES: CBC; white count 10.23, hemoglobin is 15.0, hematocrit 45.2, and platelet count 123,000. BMP; sodium 137, potassium 4.2, chloride 105, CO2 of 27, BUN 12, creatinine 1.17, glucose 100, calcium 8.4. Urinalysis is essentially unremarkable except for some ketones 1+. IMPRESSION: 1. Penile fracture. 2. Hypertension. PLAN OF TREATMENT: We are going to continue the current medication regimen. Continue Velez catheter. Urology, Dr. Adair and Dr. Rene are following the case. He is on cefazolin 1 g IV q.8 hours for prophylaxis against urinary tract infections after surgery. Continue D5 half-normal saline at 125 mL an hour which we are going to discontinue. Continue Colace 100 mg twice a day, [place] 5/325 mg tablet q.4 hours as needed for [id number] pain, lactulose 20 g twice a day as needed, morphine 2 mg IV q.3 hours as needed for severe pain, and Flomax 0.4 mg daily. Case has been discussed with the patient. Time spent 45 minutes. MD ALEXANDRE Torres/MIGUEL ANGEL /[id number]
--- NOTE | 2019-10-26 15:54 | NUR ---
alvarez was removed, pt tolerated well. emptied 223 ml from alvarez bag. pt due to void
--- NOTE | 2019-10-26 18:58 | NUR ---
RECEIVED REPORT FROM [facility] NURSE. RESTING IN BED. AAOX3. R HAND 20G SALINE LOCK. NO SIGNS OF INFILTRATION. SR UPX2. BED LOCKED AND IN LOW POSITION. CALL LIGHT WITHIN REACH.
[2019-10-26 20:00] VITALS: BP 126/83
[2019-10-26] MEDS ORDERED: SODIUM CHLORIDE 0.9% 250ML 250 ML ONE (21:58)
[2019-10-27 00:05] VITALS: BP 119/81
[2019-10-27 04:00] VITALS: BP 130/79
[2019-10-27] MEDS: HYDROCODONE/APAP 5MG-325MG TAB PO PRN (04:53)
[2019-10-27] MEDS: CEFAZOLIN SOD 1 GM/NS 50ML 50 ML IV SCH (05:35)
--- NOTE | 2019-10-27 07:17 | NUR ---
ASSUMED CARE. PATIENT AAOX3. ACYANOTIC. RESTING IN BED. NO DISTRESS NOTED. CALL LIGHT IN REACH. SIDE RAILS UP X2. BED LOW.
--- NOTE | 2019-10-27 07:18 | NUR ---
REPORT GIVEN TO [facility] NURSE. AAOX3. RESTING IN BED. R HAND SALINE LOCK. NO SIGNS OF INFILTRATION. SR UPX2. BED LOCKED AND IN LOW POSITION. CALL LIGHT WITHIN REACH.
[2019-10-27] MEDS: MORPHINE SULFATE 2 MG/ML SYR 1ML IV PRN (07:49)
[2019-10-27] MEDS: DOCUSATE SODIUM 100 MG CAP PO SCH (08:02)
[2019-10-27] MEDS: TAMSULOSIN HCL 0.4 MG CAP PO SCH (08:02)
[2019-10-27 08:10] VITALS: BP 122/75
[2019-10-27 09:03] VITALS: BP 122/75
--- NOTE | 2019-10-27 09:22 | Discharge Summary ---
HISTORY: The patient is a 49-year-old male with history of benign prostatic hypertrophy. Apparently, he has had Peyronie's disease. He had an injection done in the penis and the patient was told not to have intercourse for 10 days and he did anyway. He has had penile fracture, came to the ER. He had surgical repair by Dr. Rene. The patient is going home today. PHYSICAL EXAMINATION: HEART: Showed regular rhythm. Normal S1 and S2 sound. LUNGS: Clear bilaterally. ABDOMEN: Soft. VITAL SIGNS: We have blood pressure 122/75, temperature 97 degrees, heart rate 61 per minute, respiratory rate 18 per minute, oxygen saturation 94%. LABORATORY DATA: Urinalysis came back clear except for some ketones. On the BMP; sodium 137, potassium 4.2, chloride 105, CO2 of 27, BUN 12, creatinine 1.17, glucose 100, calcium 8.4. On the CBC; white blood count 10.23, hemoglobin 15.0, hematocrit 45.2, and platelet count 233,000. FINAL IMPRESSION: 1. Penile fracture. 2. Benign prostatic hypertrophy. 3. Renal failure, which is resolved. 4. Constipation. PLAN OF TREATMENT: The patient is going to be discharged home with Bactrim DS one tablet twice a day for 10 days and also [place] 10/325 q.4 hours as needed for pain, 30 tablets, no refills. The patient will continue the home medications and also he is on Flomax 0.4 mg daily, Colace 100 mg twice a day. MD ALEXANDRE Torres/MIGUEL ANGEL /[id number]
[2019-10-27] MEDS ORDERED: NORCO 10-325 T1 EACH PO (09:40)
[2019-10-27] MEDS ORDERED: BACTRIM DS TAB1 EACH PO (09:42)
== END 2019-10-27 09:56 | disposition home or self-care (01) | DRG 908 ==
LOC: ER 12:18 → ERHOLD 14:36 → MED/SURG 16:15 → OBSVTOIN 10-24 17:11
PROVIDERS: ADMIT Internal Medicine; ATTEND Internal Medicine
PROC: 0VQS0ZZ Repair Penis, Open Approach (ICD-10-PCS; 2019-10-23)
PROC: 0VJ Male Reproductive System, Inspection (ICD-10-PCS; 2019-10-23)
PROC: 0TJB8ZZ Inspection of Bladder, Via Natural or Artificial Opening Endoscopic (ICD-10-PCS; principal; 2019-10-23 17:53)
DX: S39.840A Fracture of corpus cavernosum penis, initial encounter (principal); N17.9 Acute kidney failure, unspecified; Z42.8 Encounter for other plastic and reconstructive surgery following medical procedure or healed injury; N40.0 Benign prostatic hyperplasia without lower urinary tract symptoms; K59.00 Constipation, unspecified; N48.6 Induration penis plastica; I10 Essential (primary) hypertension; G47.33 Obstructive sleep apnea (adult) (pediatric)
CPT/HCPCS: 36415; 71045; 80048; 81001; 85025; 85610; 85730; 87086; 93005; 96361; 99283; G0378; J0690; J1100; J2001; J2175; J2250; J2270; J2405; J3010; J7050